=== PATIENT | female | born 1940 ===

== ENCOUNTER 2019-01-14 16:59 | Emergency (ER) | payer MEDICARE, MEDICAID ==
[2019-01-14 17:06] VITALS: O2SAT 97
[2019-01-14] MEDS ORDERED: Albuterol-Ipratrop 3 mg / 0.5 (3 ml) UD INH STA (17:27)
[2019-01-14] MEDS ORDERED: Albuterol-Ipratrop 3 mg / 0.5 (3 ml) UD ONE (17:43)
--- NOTE | 2019-01-14 17:55 | ED PDOC ---
HPI: CCC, URI, Sore Throat Time Seen by Provider: 01/14/19 17:24 Chief Complaint (Nursing): Cough, Cold, Congestion Chief Complaint (Provider): Cough, Cold, Congestion History Per: Patient History/Exam Limitations: no limitations Onset/Duration Of Symptoms: Days (x 2) Current Symptoms Are (Timing): Still Present Associated Symptoms: Cough, Sinus Drainage, Nasal Congestion Additional Complaint(s): 78 year old female presents to the ED for evaluation of a non-productive cough and congestion for 2 days. Symptoms are associated with a runny nose with clear fluid. Patient reports mild improvement after taking Mucinex. Denies shortness of breath, chest pain, fever and a history of seasonal allergies. PMD: Dr. Reji Mazariegos Past Medical History Reviewed: Historical Data, Nursing Documentation, Vital Signs Vital Signs: Last Vital Signs Temp 98.2 F 01/14/19 17:06 Pulse 81 01/14/19 17:06 Resp 16 01/14/19 17:06 BP 163/72 H 01/14/19 17:06 Pulse Ox 97 01/14/19 17:06 Primary Care Provider: Reji Mazariegos F - Medical History PMH: No Chronic Diseases - Surgical History Surgical History: No Surg Hx - Family History Family History: States: Unknown Family Hx - Home Medications Home Medications: Ambulatory Orders Medication Instructions Recorded Loratadine 10 mg PO DAILY #30 tablet 01/14/19 Montelukast [Singulair] 10 mg PO DAILY #30 tab 01/14/19 - Allergies Allergies/Adverse Reactions: Allergies Allergy/AdvReac Type Severity Reaction Status Date / Time No Known Allergies Allergy Verified 01/14/19 17:07 Review of Systems ROS Statement: Except As Marked, All Systems Reviewed And Found Negative Constitutional: Negative for: Fever, Sweats ENT: Positive for: Nose Discharge, Nose Congestion Respiratory: Positive for: Cough. Negative for: Shortness of Breath, Sputum Physical Exam - Reviewed Nursing Documentation Reviewed: Yes Vital Signs Reviewed: Yes - Physical Exam Appears: Positive for: No Acute Distress Head Exam: Positive for: ATRAUMATIC, NORMAL INSPECTION, NORMOCEPHALIC Skin: Positive for: Normal Color, Warm, Dry Eye Exam: Positive for: EOMI, Normal appearance, PERRL ENT: Positive for: Pharynx Is (cobblestoning at posterior ). Negative for: Pharyngeal Erythema, Tonsillar Exudate, Tonsillar Swelling Neck: Positive for: Normal, Painless ROM, Supple Cardiovascular/Chest: Positive for: Regular Rate, Rhythm. Negative for: Murmur Respiratory: Positive for: Normal Breath Sounds, Other (non productive cough during exam). Negative for: Wheezing, Respiratory Distress Gastrointestinal/Abdominal: Positive for: Normal Exam, Soft. Negative for: Tenderness Back: Positive for: Normal Inspection. Negative for: L CVA Tenderness, R CVA Tenderness Extremity: Positive for: Normal ROM (x 4). Negative for: Deformity Neurological/Psych: Positive for: Awake, Alert, Normal Tone, Oriented (x 3). Negative for: Motor/Sensory Deficits - Laboratory Results Result Diagrams: 01/14/19 18:10 01/14/19 18:10 - ECG O2 Sat by Pulse Oximetry: 97 (RA) Pulse Ox Interpretation: Normal Medical Decision Making Medical Decision Makin:25 MDM: URI vs seasonal allergies Patient with concerns for infection. Will do basic lab workup and chest x-ray Mostly likely discharge patient home. 19:14 Labs are normal. Chest x-ray is unremarkable. Patient will be discharged with allergy medications and instructed to follow up with PMD. --- Scribe Attestation: Documented by Khalida Rudolph, acting as a scribe for Safia Escamilla MD. Provider Scribe Attestation: All medical record entries made by the Scribe were at my direction and personally dictated by me. I have reviewed the chart and agree that the record accurately reflects my personal performance of the history, physical exam, medical decision making, and the department course for this patient. I have also personally directed, reviewed, and agree with the discharge instructions and disposition. Disposition - Clinical Impression Clinical Impression: Cough - Patient ED Disposition Is Patient to be Admitted: No - Disposition Disposition: Routine/Home Disposition Time: 19:14 Condition: STABLE Additional Instructions: Take medication for allergies. Follow up with primary medical doctor in one week. Return to the emergency department if you develop trouble breathing or chest pain. Prescriptions: Loratadine 10 mg PO DAILY #30 tablet Montelukast [Singulair] 10 mg PO DAILY #30 tab Instructions: Cough, Adult (DC) Forms: [facility] (Puerto [place]ican) Print Language: MONGOLIAN
[2019-01-14 18:13] LABS: BASO # 0.1 K/uL (0.0-0.2); BASO % 0.9 % (0.0-2.0); EOS # 0.3 K/uL (0.0-0.7); EOS % 5.8 % (0.0-4.0); HEMOGLOBIN 12.1 g/dL (12.0-16.0); LYMPH # 1.9 K/uL (1.0-4.3); LYMPH % 32.2 % (20.0-40.0); MEAN CELL VOLUME 80.1 fl (81.0-99.0); MEAN CORPUSCULAR HEMOGLOBIN 26.1 pg (27.0-31.0); MEAN CORPUSCULAR HGB CONC 32.5 g/dL (33.0-37.0); MEAN PLATELET VOLUME 8.1 fl (7.2-11.7); MONO # 1.1 K/uL (0.0-0.8); NEUT # 2.5 K/uL (1.8-7.0); NEUT % 43.1 % (50.0-75.0); NRBC % 0.2 % (0.0-0.0); RBC 4.64 Mil/uL (3.80-5.20); WHITE BLOOD COUNT 5.9 K/uL (4.8-10.8)
[2019-01-14 18:28] LABS: BLOOD UREA NITROGEN 16 mg/dl (7-17); CALCIUM 9.3 mg/dL (8.4-10.2); GFR NON-AFRICAN AMERICAN > 60
[2019-01-14 19:28] VITALS: BP 133/63; PULSE 85; RESP 18; TEMP 98.6
--- NOTE | 2019-01-15 09:41 | RAD ---
Date of service: 01/14/2019 HISTORY: cough COMPARISON: No prior. TECHNIQUE: Chest PA and lateral views FINDINGS: LUNGS: No consolidation PLEURA: No significant pleural effusion identified. No pneumothorax apparent. CARDIOVASCULAR: No aortic atherosclerotic calcification present. Normal cardiac size. Mild pulmonary venous congestion possible. Density unknown OSSEOUS STRUCTURES: Thoracic spondylosis. VISUALIZED UPPER ABDOMEN: Normal. OTHER FINDINGS: None. IMPRESSION: No pulmonary consolidative infiltrate. Mild pulmonary venous congestion possible-chronicity unknown. Heart size normal.
== END 2019-01-14 19:25 | disposition home or self-care (01) ==
LOC: H.ER 16:59
DX: R05 Cough (principal)
CPT/HCPCS: 71046; 80048; 85025; 94640; 96374; 99284; J2930